=== PATIENT | male | born 1945 | race African-American/Black ===

== ENCOUNTER → 2018-05-04 | Outpatient (CLI) | payer MEDICARE, OTHER ==
[2018-05-04 17:03] LABS: CREATININE 1.86 mg/dL (0.70-1.30); POTASSIUM 4.3 mmol/L (3.5-5.1)
== END | disposition home or self-care (01) ==
LOC: LAB 15:41
DX: Z01.810 Encounter for preprocedural cardiovascular examination (principal); I27.20 Pulmonary hypertension, unspecified

== ENCOUNTER → 2018-06-27 | Outpatient (CLI) | payer MEDICARE, OTHER ==
[~2018-06-27] MED LIST: ACETAMINOPHEN325 M2 PO; ALDACTONE25 MG PO; ASPIRIN ADULT L81 M1 PO; BENAZEPRIL10 MG PO; BUMETANIDE1 MG PO; CRESTOR10 M1 PO; GLIPIZIDE5 MG PO; HYDRALAZINE HC100 MG PO; NORVASC10 MG PO; SYMB160 INH
== END ==
DX: I27.20 Pulmonary hypertension, unspecified (principal)

== ENCOUNTER 2018-09-12 12:37 | Inpatient (IN) | payer MEDICARE, OTHER ==
[~2018-09-12] VITALS: Ht 185.4 cm; Wt 100.8 kg
--- NOTE | ~2018-09-12 | EKG ---
[place], [place] ELECTROCARDIOGRAM REPORT NAME: ADRIAN VALENTE JR UNIT #: [id number] ROOM: 421 DOCTOR: JESE DRAFT REPORT BIRTHDATE: [birth year] [facility] Test Date: 2018-09-12 Test Time: 13:09:26 Pat Name: ADRIAN VALENTE Department: Room: 421 Gender: M Lead Security Officer: : 1945 Requested By: ALISA RIVERA Order Number: [id number] Reading MD: Bulmaro Sotomayor MD Measurements Intervals [place] Rate: 66 P: 72 KS: 145 QRS: -53 QRSD: 145 T: -9 QT: 454 QTc: 476 Interpretive Statements Sinus rhythm RBBB and LAFB Baseline wander in lead(s) II,III,aVF No previous ECG available for comparison Electronically Signed On 09-14-2018 13:44:18 PDT by Bulmaro Sotomayor MD CM:EKGRPT:ELECTROCARDIOGRAM REPORT [id number] ALISA WRIGHT DRAFT REPORT ALISA RIVERA DO
[2018-09-12 12:40] VITALS: BP 122/61
[2018-09-12 13:12] LABS: BASO % 0.4 % (0.0-1.0); EOS # 0.1 10*3/uL (0.0-0.4); EOS % 2.3 % (1.0-4.0); HEMATOCRIT 26.4 % (42.0-52.0); HEMOGLOBIN 8.3 g/dl (14.0-18.0); LYMPH # 2.2 10*3/uL (1.3-4.4); LYMPH % 39.1 % (27.0-41.0); MEAN CELL VOLUME 89.8 fl (80.0-94.0); MEAN CORPUSCULAR HGB 28.2 pg (27.0-31.0); MEAN CORPUSCULAR HGB CONC 31.4 g/dl (33.0-37.0); MEAN PLATELET VOLUME 10.3 fl (9.6-12.3); MONO # 0.5 10*3/uL (0.1-1.0); MONO % 8.3 % (3.0-9.0); NEUT # 2.8 10*3/uL (2.3-7.9); NEUT % 49.7 % (47.0-73.0); PLATELET COUNT AUTOMATED 308 10*3/uL (130-400); RED BLOOD COUNT 2.94 10*6/uL (4.50-5.90); RED CELL DISTRI WIDTH 19.3 % (0-14.5); WHITE BLOOD COUNT 5.6 10*3/uL (4.8-10.8)
[2018-09-12 13:21] LABS: ACT PARTIAL THROMBO TIME 21.1 SECONDS (20.8-31.5)
[2018-09-12 13:33] LABS: BILIRUBIN NEGATIVE (NEGATIVE); BLOOD NEGATIVE (NEGATIVE); CLARITY CLOUDY (CLEAR); COLOR YELLOW (YELLOW); GLUCOSE NEGATIVE (NEGATIVE); KETONE NEGATIVE (NEGATIVE); LEUKO ESTERASE TRACE (NEGATIVE); NITRITE NEGATIVE (NEGATIVE); PH 5.5 (5.0-9.0); SPECIFIC GRAVITY >= 1.030 (1.005-1.030); UROBILINOGEN 0.2 E.U./dl (0.2-1.0)
[2018-09-12 13:36] LABS: ALBUMIN 3.3 gm/dl (3.1-4.5); CREATININE 2.13 mg/dL (0.70-1.30); POTASSIUM 3.8 mmol/L (3.5-5.1); TOTAL PROTEIN 7.5 gm/dL (6.4-8.2); TROPONIN I 0.026 ng/ml (<0.045)
[2018-09-12 13:46] LABS: BACTERIA 3+; WBC TNTC wbc/hpf (0-5)
[2018-09-12 13:48] LABS: FINE GRANULAR CAST 15-20; WHITE BLOOD CELL CAST 0-2
[2018-09-12 14:58] VITALS: BP 118/68
--- NOTE | 2018-09-12 15:24 | NUR ---
CCA 73, admitted to , under the services of MAEVE Goodwin DO with a diagnosis of UTI, ARF, UNSTEADY GAIT, DEHYDRATION. Chief complaint is UTI. Patient arrived via bed from ER. Monitor applied. Initial assessment completed. Vital signs taken and recorded. MAEVE GOODWIN DO notified of admission to the unit. Orders received. See assessment for past medical history, medications and allergies. Patient and/or family oriented to unit. [facility] visitation policy reviewed. Clothing/patient valuable form completed. ERIK MOSHER.
[2018-09-12 15:35] VITALS: BP 119/68
--- NOTE | 2018-09-12 16:05 | NUR ---
NOTIFIED OF CONSULT.
--- NOTE | 2018-09-12 16:18 | NUR ---
[facility] AT THIS [facility] REGARDING MED LIST. WAITING FOR FAXED LIST OF MEDICATIONS.
[2018-09-12] MEDS ORDERED: NORVASC10 MG PO (16:43)
[2018-09-12] MEDS ORDERED: ACETAMINOPHEN325 M2 PO (16:43)
[2018-09-12] MEDS ORDERED: ASPIRIN ADULT L81 M1 PO (16:57)
[2018-09-12] MEDS ORDERED: SYMB160 INH (16:58)
[2018-09-12] MEDS ORDERED: BENAZEPRIL10 MG PO (16:58)
[2018-09-12] MEDS ORDERED: GLIPIZIDE5 MG PO (17:00)
[2018-09-12] MEDS ORDERED: CRESTOR10 M1 PO (17:01)
[2018-09-12] MEDS ORDERED: HYDRALAZINE HC100 MG PO (17:01)
[2018-09-12] MEDS ORDERED: ALDACTONE25 MG PO (17:03)
[2018-09-12] MEDS ORDERED: BUMETANIDE1 MG PO (17:03)
--- NOTE | 2018-09-12 17:07 | NUR ---
NOTIFIED REGARDING UPDATED MED REC.
--- NOTE | 2018-09-12 18:38 | NUR ---
NSR PER CM. HR 73. HR INCREASES WITH ACTIVITY. PT DENIES ANY PAIN. WILL CONTINUE TO MONITOR.
[2018-09-12 20:00] VITALS: BP 143/67
--- NOTE | 2018-09-12 21:20 | NUR ---
DR LINARES AWARE OF PATIENT REQUESTING SOMETHING FOR A COUGH
--- NOTE | 2018-09-12 22:15 | NUR ---
MEDICATED WITH TESSALON PEARLES FOR NON-PRODUCTIVE COUGH.
--- NOTE | 2018-09-12 22:55 | NUR ---
NO COUGH NOTED AT THIS TIME. TESSALON PEARLES EFFECTIVE.
--- NOTE | 2018-09-12 23:16 | NUR ---
RESTING ON LEFT SIDE WITH EYES CLOSED. AWAKENED EASILY. DENIES ANY NEEDS OR COMPLAINTS AT THIS TIME. ENCOURAGED TO USE CALL LIGHT FOR NEEDS. SEE ASSESSMENT INFO.
[2018-09-13] VITALS (12 sets, daily range): BP systolic 104–152; BP diastolic 50–88
--- NOTE | 2018-09-13 02:34 | NUR ---
RESTING ON RIGHT SIDE WITH EYES CLOSED. RESPIRATIONS ARE EASY AND REGULAR. NO DISTRESS IS NOTED. IV FLUIDS INFUSING. CALL LIGHT IS WITHIN REACH. WILL CONTINUE TO MONITOR.
[2018-09-13 06:47] LABS: BASO % 0.2 % (0.0-1.0); EOS # 0.3 10*3/uL (0.0-0.4); EOS % 5.7 % (1.0-4.0); HEMATOCRIT 22.3 % (42.0-52.0); HEMOGLOBIN 6.8 g/dl (14.0-18.0); LYMPH # 2.8 10*3/uL (1.3-4.4); LYMPH % 53.9 % (27.0-41.0); MEAN CORPUSCULAR HGB 27.8 pg (27.0-31.0); MEAN CORPUSCULAR HGB CONC 30.5 g/dl (33.0-37.0); MEAN PLATELET VOLUME 10.3 fl (9.6-12.3); MONO # 0.5 10*3/uL (0.1-1.0); MONO % 10.2 % (3.0-9.0); NEUT # 1.5 10*3/uL (2.3-7.9); NEUT % 29.8 % (47.0-73.0); PLATELET COUNT AUTOMATED 247 10*3/uL (130-400); RED BLOOD COUNT 2.45 10*6/uL (4.50-5.90); RED CELL DISTRI WIDTH 19.2 % (0-14.5); WHITE BLOOD COUNT 5.1 10*3/uL (4.8-10.8)
[2018-09-13 07:13] LABS: CREATININE 1.89 mg/dL (0.70-1.30); PHOSPHOROUS 3.5 mg/dL (2.5-4.9); POTASSIUM 3.9 mmol/L (3.5-5.1)
[2018-09-13 07:21] LABS: THYROID STIM HORMONE (HS) 2.02 uIU/ml (0.358-4.75)
--- NOTE | 2018-09-13 10:00 | NUR ---
KENZIE MISSING, PHARMACY CALLED. WILL PASS MEDICATION WHEN ARRIVES TO FLOOR.
--- NOTE | 2018-09-13 10:43 | NUR ---
PHYSICAL THERAPY PAtient will be receiving blood shortly. Will attempt PT evaluation at a later time or date. Thank you for this referral. Linda Mckee,PT
--- NOTE | 2018-09-13 19:21 | NUR ---
LOTENSIN CANCELLED PER PHARMACY. ZESTERIL WAS ORDERED BUT IS NOT ON EMAR AFTER 3 CALLS TO PHARMACY. IT IS STILL MISSING AND HAS NOT BEEN GIVEN.
--- NOTE | 2018-09-13 20:39 | NUR ---
ASSUMED CARE OF PATIENT. PATIENT IS RESTING IN BED WITH EASY AND REGULAR RESPERS ON ROOM AIR. ASSESSMENT IS COMPLETE WITH NO S/S OF DISTRESS NOTED AT THIS TIME. PATIENT DOES C/O LUQ ABDOMINAL PAIN RATING A 3/10 AND IS REQUESTING TESSALON PERLES AT THIS TIME BED IS LOW, LOCKED, AND CALL LIGHT IS WITHIN REACH. SEE SHIFT ASSESSMENT.
[2018-09-14] VITALS: BP 125/55
[2018-09-14 06:47] LABS: HEMOGLOBIN 8.1 g/dl (14.0-18.0); MEAN CELL VOLUME 89.9 fl (80.0-94.0); MEAN CORPUSCULAR HGB 29.1 pg (27.0-31.0); MEAN CORPUSCULAR HGB CONC 32.4 g/dl (33.0-37.0); MEAN PLATELET VOLUME 9.3 fl (9.6-12.3); PLATELET COUNT AUTOMATED 241 10*3/uL (130-400); RED BLOOD COUNT 2.78 10*6/uL (4.50-5.90); RED CELL DISTRI WIDTH 18.3 % (0-14.5); WHITE BLOOD COUNT 5.7 10*3/uL (4.8-10.8)
[2018-09-14 07:21] LABS: CREATININE 1.79 mg/dL (0.70-1.30); POTASSIUM 3.6 mmol/L (3.5-5.1)
--- NOTE | 2018-09-14 07:33 | NUR ---
24 HR chart check completed.
[2018-09-14 07:53] LABS: ATYPICAL LYMPHS 2 % (0-0); TOTAL CELLS COUNTED 100 #CELLS
[2018-09-14 07:54] LABS: PLATELET SUFFICIENCY NORMAL (NORMAL); ROULEAUX SLIGHT
[2018-09-14 07:55] LABS: OVALOCYTES FEW; SCHISTOCYTES FEW
[2018-09-14 08:00] VITALS: BP 99/63
--- NOTE | 2018-09-14 08:00 | NUR ---
Patient resting quietly with no c/o discomfort. Respirations easy and regular. Vital signs stable. No overt distress. HANNY DIETRICH
--- NOTE | 2018-09-14 09:05 | NUR ---
PHYSICAL THERAPY PAtient repors he has no PT needs. He reports being 100 % (I) with mobility. Thank you for this referral. Linda Mckee,PT
--- NOTE | 2018-09-14 09:10 | NUR ---
Patient states that he is abmbulating and able to complete ADL's independently. He is declining any further occupational therapy at this time. No further OT per patient request. Nataliia Wise OTR/L
--- NOTE | 2018-09-14 11:32 | NUR ---
case management visits with patient, patient states he lives at home with his girlfriend in [place], [place], he states he has an address in [place], but this is his daughters home. discussed with him home iv antibiotic. patient stated that he would like to have them delivered to him in [place] at his girlfriends home. he stated she would be able to help him with them. he states he is also capable of learing how to administer them. case management contacted [facility] and they would be able to deliver the antibiotics to patient. also contacted [facility] in [place], [place] regarding order to see patient. spoke to Michelle, Michelle stated someone from the [facility] would be able to see patient tomorrow at 4pm, Michelle was given [facility] number to coordinate the deliver and initiate care.
[2018-09-14 12:00] VITALS: BP 136/68
--- NOTE | 2018-09-14 12:00 | NUR ---
Patient resting quietly with no c/o discomfort. Respirations easy and regular. Vital signs stable. No overt distress. HANNY DIETRICH
--- NOTE | 2018-09-14 12:26 | NUR ---
Nutritional Support Services Note: Pt is eating 100% of all meals. 1800cal diet as ordered. No signs of malnutrition noted- albumin is 3.3. Encouraged 100% po intake of all meals and healthy eating. Discussed adequate fluid intake. Will follow as needed. No nutrition intervention needed at this time. Catherine Rosario Rdn Ld
--- NOTE | 2018-09-14 13:27 | NUR ---
case management contacted [facility] regarding patient's iv medication. spoke to Leslie, copay of medication was given along with a payment plan, case management talked with patient, patient was ok with the copay and payment plan, educated him that a respresentative from [facility] would be calling him and finalizing the delivery of the iv medication. no other needs at this time
--- NOTE | 2018-09-14 14:56 | NUR ---
case management visits with patient, girlfriend present, patient was on the phone with Leslie delgado [facility], all arrangements have been made for iv antibiotic delivery to patient
[2018-09-14 16:00] VITALS: BP 110/58
[2018-09-14 20:00] VITALS: BP 104/65
[2018-09-15] VITALS: BP 102/48
--- NOTE | 2018-09-15 00:35 | NUR ---
NOTIFIED DR LINARES OF PATIENTS MANUAL BP 102/48. STATED TO KEEP AN EYE ON HIM
--- NOTE | 2018-09-15 07:52 | NUR ---
Shift chart check completed.
[2018-09-15 08:00] VITALS: BP 116/68
--- NOTE | 2018-09-15 10:06 | NUR ---
DRESSING CHANGED ON LEFT UPPER ARM MIDLINE. PT TO BE DISCHARGED HOME WITH MIDLINE
--- NOTE | 2018-09-15 11:55 | NUR ---
Discharge instructions reviewed with patient/family. Patient receptive and verbalizes understanding. Follow-up care understood. Written instructions given to patient/family. iv in right ac removed. pt sent home with left upperarm accucath for iv antibiotic administration. pt has no questions at this time. wheelchair for discharge, daughter with patient. CALI CASAS
== END 2018-09-15 11:55 | disposition home or self-care (01) | DRG 689 ==
LOC: ED 12:37 → EDHOLD 14:24 → 4E 14:24
PROVIDERS: Emergency Medicine; Internal Medicine; Student in an Organized Health Care Education/Training Program; ADMIT Internal Medicine
PROC: 30233N1 Transfusion of Nonautologous Red Blood Cells into Peripheral Vein, Percutaneous Approach (ICD-10-PCS; principal; 2018-09-13)
PROC: 05HY33Z Insertion of Infusion Device into Upper Vein, Percutaneous Approach (ICD-10-PCS; 2018-09-14)
DX: N39.0 Urinary tract infection, site not specified (principal); N17.0 Acute kidney failure with tubular necrosis; I13.0 Hypertensive heart and chronic kidney disease with heart failure and stage 1 through stage 4 chronic kidney disease, or unspecified chronic kidney disease; Z16.12 Extended spectrum beta lactamase (ESBL) resistance; I50.9 Heart failure, unspecified; B96.29 Other Escherichia coli [E. coli] as the cause of diseases classified elsewhere; N18.9 Chronic kidney disease, unspecified; D64.9 Anemia, unspecified; E11.22 Type 2 diabetes mellitus with diabetic chronic kidney disease; E11.65 Type 2 diabetes mellitus with hyperglycemia; E86.0 Dehydration; E78.5 Hyperlipidemia, unspecified; E11.42 Type 2 diabetes mellitus with diabetic polyneuropathy; J44.9 Chronic obstructive pulmonary disease, unspecified; E55.9 Vitamin D deficiency, unspecified; K21.9 Gastro-esophageal reflux disease without esophagitis; I25.10 Atherosclerotic heart disease of native coronary artery without angina pectoris; M54.9 Dorsalgia, unspecified; G89.29 Other chronic pain; M48.00 Spinal stenosis, site unspecified; Z96.643 Presence of artificial hip joint, bilateral; Z88.8 Allergy status to other drugs, medicaments and biological substances; Z90.79 Acquired absence of other genital organ(s); Z82.49 Family history of ischemic heart disease and other diseases of the circulatory system; Z83.3 Family history of diabetes mellitus; Z80.42 Family history of malignant neoplasm of prostate; Z79.82 Long term (current) use of aspirin; Z79.899 Other long term (current) drug therapy

== ENCOUNTER → 2022-07-21 | Outpatient (CLI) | payer MEDICARE, OTHER ==
[2022-07-21 15:19] LABS: BASO % 0.6 % (0.0-1.0); EOS # 0.3 10*3/uL (0.0-0.4); EOS % 4.2 % (1.0-4.0); HEMATOCRIT 37.2 % (42.0-52.0); LYMPH # 1.7 10*3/uL (1.3-4.4); LYMPH % 25.1 % (27.0-41.0); MEAN CELL VOLUME 93.5 fl (80.0-94.0); MEAN CORPUSCULAR HGB 29.9 pg (27.0-31.0); MONO # 0.7 10*3/uL (0.1-1.0); MONO % 9.7 % (3.0-9.0); NEUT # 4.1 10*3/uL (2.3-7.9); NEUT % 60.3 % (47.0-73.0); PLATELET COUNT AUTOMATED 304 10*3/uL (130-400); RED BLOOD COUNT 3.98 10*6/uL (4.50-5.90); RED CELL DISTRI WIDTH 14.4 % (0-14.5); WHITE BLOOD COUNT 6.7 10*3/uL (4.8-10.8)
[2022-07-21 15:50] LABS: POTASSIUM 5.1 mmol/L (3.4-5.1); TOTAL PROTEIN 7.3 gm/dL (6.0-8.0)
[2022-07-21 15:56] LABS: VITAMIN D, 25-HYDROXY 31.5 ng/mL (30-100)
== END | disposition home or self-care (01) ==
LOC: RAD 10:24 → LAB 10:24
PROVIDERS: Physician Assistant Medical; ATTEND Orthopaedic Surgery
DX: M16.0 Bilateral primary osteoarthritis of hip (principal); M25.511 Pain in right shoulder; M25.512 Pain in left shoulder; I12.9 Hypertensive chronic kidney disease with stage 1 through stage 4 chronic kidney disease, or unspecified chronic kidney disease; N18.32 Chronic kidney disease, stage 3b; D63.8 Anemia in other chronic diseases classified elsewhere; E53.8 Deficiency of other specified B group vitamins; R20.2 Paresthesia of skin

== ENCOUNTER → 2023-04-21 | Outpatient (CLI) | payer MEDICARE, OTHER ==
[2023-04-21 15:32] LABS: POTASSIUM 5.2 mmol/L (3.4-5.1)
== END | disposition home or self-care (01) ==
LOC: LAB 14:45
PROVIDERS: ATTEND Nurse Practitioner Family
DX: E87.5 Hyperkalemia (principal)